=== PATIENT | female | born 1990 | race Caucasian/White ===

== ENCOUNTER 2019-06-19 18:38 | Emergency (ER) | payer OTHER ==
[~2019-06-19] VITALS: Ht 170.2 cm; Wt 81.7 kg
[~2019-06-19 18:38] MED LIST: Bactrim Ds Tab1 EACH PO; Bactroban22 GM TOP
[2019-06-19 20:02] LABS: Source, Urine Clean Catch
[2019-06-19 20:04] LABS: BASOPHILS ABSOLUTE AUTO 0.07 K/mm3 (0.00-0.23); BASOPHILS PERCENT AUTO 0 % (0-2); EOSINOPHILS ABSOLUTE AUTO 0.28 K/mm3 (0.00-0.68); EOSINOPHILS PERCENT AUTO 2 % (0-6); Hematocrit 41.1 % (33.0-51.0); Hemoglobin 13.6 g/dL (11.5-16.0); IMMATURE GRAN ABSOLUTE AUTO 0.06 K/mm3 (0.00-0.10); IMMATURE GRAN PERCENT AUTO 0 % (0-1); LYMPHOCYTES ABSOLUTE AUTO 2.69 K/mm3 (0.84-5.20); LYMPHOCYTES PERCENT AUTO 15 % (21-46); MONOCYTES ABSOLUTE AUTO 0.91 K/mm3 (0.16-1.47); MONOCYTES PERCENT AUTO 5 % (4-13); Mean Corpuscular HGB 29.9 pg (26.0-34.0); Mean Corpuscular HGB Conc 33.1 g/dL (31.5-36.5); Mean Corpuscular Volume 90 fL (80-100); Mean Platelet Volume 9.8 fL (9.1-12.4); NEUTROPHILS ABSOLUTE AUTO 14.52 K/mm3 (1.96-9.15); NEUTROPHILS PERCENT AUTO 78 % (41-73); Platelet Count 381 K/mm3 (150-400); RDW Coefficient Variation 12.6 % (11.7-14.2); RDW Standard Deviation 42.2 fL (35.1-46.3); Red Blood Cell Count 4.55 M/mm3 (3.80-5.20); White Blood Cell Count 18.53 K/mm3 (4.00-11.30)
[2019-06-19 20:13] LABS: Appearance, Urine Clear (Clear); Bilirubin, Urine Neg (Neg); Blood, Urine Neg (Neg); Color, Urine Yellow (P-Yellow); Glucose Qualitative, Urine Neg (Neg); Ketones, Urine Neg (Neg); Leukocyte Esterase, Urine 3+ (Neg); Nitrite, Urine Neg (Neg); Protein, Urine 1+ (Neg); Specific Gravity, Urine 1.015 (1.003-1.022); Urobilinogen, Urine NORM (Normal)
[2019-06-19 20:20] LABS: Bacteria Mod /hpf; Red Blood Cells, Urine 0-2 /hpf (0-2); Squamous Epithelial Cells Mod /hpf (Few); Trichomonas Few /hpf
[2019-06-19 20:21] LABS: Mucus Light (0-Heavy)
[2019-06-19 20:23] LABS: Alanine Aminotransfer (ALT/SGP 28 U/L (12-78); Albumin, Blood 4.2 g/dL (3.4-5.0); Albumin/Globulin Ratio 1.3 (0.8-1.8); Alk Phos 40 U/L (50-136); Anion Gap 4 mmol/L (6-16); Aspartate Aminotrans (AST/SGOT 14 U/L (12-37); Bilirubin, Total 0.5 mg/dL (0.1-1.0); Blood Urea Nitrogen 13 mg/dL (8-24); Bun/Creatinine Ratio 17.1 (12.0-20.0); CO2, Blood 25 mmol/L (21-32); Calcium, Blood 9.2 mg/dL (8.5-10.1); Chloride, Blood 109 mmol/L (98-108); Creatinine, Blood 0.76 mg/dL (0.40-1.00); Globulin, Blood 3.2 g/dL (2.2-4.0); Glomerular Filtration Rate >60 (60-); Glucose, Blood 87 mg/dL (70-99); Potassium, Blood 3.6 mmol/L (3.5-5.5); Sodium, Blood 138 mmol/L (136-145); Total Protein, Blood 7.4 g/dL (6.4-8.2)
[2019-06-19] MEDS ORDERED: CEPH500 PO (20:58)
[2019-06-19] MEDS ORDERED: Pyridium200 MG PO (20:58)
[2019-06-22 03:11] LABS: CHLAMYDIA TRACHOMATIS, NAA Positive (Negative); NEISSERIA GONORRHOEAE, NAA Negative (Negative)
== END 2019-06-19 21:18 | disposition home or self-care (01) ==
LOC: ER 18:38
PROVIDERS: Emergency Medicine; Physician Assistant
DX: N39.0 Urinary tract infection, site not specified (principal); F17.210 Nicotine dependence, cigarettes, uncomplicated
CPT/HCPCS: 36415; 80053; 81001; 81025; 83690; 85025; 87086; 99284; A9270-GY

== ENCOUNTER 2019-11-03 21:30 | Emergency (ER) | payer OTHER ==
[~2019-11-03] VITALS: Ht 170.2 cm; Wt 79.4 kg
[~2019-11-03 21:30] MED LIST changes: +CEPH500 PO; +Pyridium200 MG PO
[2019-11-03] MEDS ORDERED: AMOCLA875 PO (23:24)
== END 2019-11-03 23:47 | disposition home or self-care (01) ==
LOC: ER 21:30
DX: S61.551A Open bite of right wrist, initial encounter (principal); F17.200 Nicotine dependence, unspecified, uncomplicated; Z23 Encounter for immunization; W54.0XXA Bitten by dog, initial encounter
CPT/HCPCS: 90471; 90714; 99283-25

== ENCOUNTER 2019-12-27 16:29 | Emergency (ER) | payer OTHER ==
[~2019-12-27] VITALS: Ht 170.2 cm; Wt 81.7 kg
[~2019-12-27 16:29] MED LIST changes: +AMOCLA875 PO
[2019-12-27] MEDS ORDERED: KETO10 PO (17:35)
[2019-12-27] MEDS ORDERED: ACET500 PO (17:35)
== END 2019-12-27 18:10 | disposition home or self-care (01) ==
LOC: ER 16:29
DX: M54.41 Lumbago with sciatica, right side (principal); F17.200 Nicotine dependence, unspecified, uncomplicated
CPT/HCPCS: 96374; 99283-25; J1885

== ENCOUNTER → 2023-07-27 | Outpatient (CLI) | payer OTHER ==
[~2023-07-27] MED LIST changes: +ACET500 PO; +KETO10 PO
== END | disposition home or self-care (01) ==
LOC: LAB 15:19 → LAB SHORT 15:19
DX: N30.00 Acute cystitis without hematuria (principal)
CPT/HCPCS: 87077; 87086; 87186